=== PATIENT | female | born 1995 | race Caucasian/White ===

== ENCOUNTER 2016-07-11 02:10 | Emergency (ER) | payer SELFPAY ==
[2016-07-11 02:49] LABS: ALT 15 U/L (7-52); AST 16 U/L (13-39); Albumin 4.2 g/dL (3.2-5.2); Alkaline Phosphatase 52 U/L (34-104); Anion Gap 7 mmol/L (2-11); BUN/Creatinine Ratio 13.4 (8-20); Blood Urea Nitrogen 11 mg/dL (6-24); CO2 Carbon Dioxide 27 mmol/L (22-32); Calcium 9.4 mg/dL (8.6-10.3); Chloride 101 mmol/L (101-111); EGFR African American 113.2 (>60); Globulin 3.3 g/dL (2-4); Glucose 93 mg/dL (70-100); Potassium 3.5 mmol/L (3.5-5.0); Sodium 135 mmol/L (133-145); Total Protein 7.5 g/dL (6.4-8.9)
[2016-07-11 03:02] LABS: Hematocrit 43 % (35-47); Hemoglobin 14.6 g/dl (12.0-16.0); Mean Corpuscular HGB Conc 34 g/dl (31-36); Mean Corpuscular Hemoglobin 31 pg (27-31); Mean Corpuscular Volume 89 fL (80-97); Mean Platelet Volume 7 um3 (7.4-10.4); Red Blood Count 4.79 10^6/ul (4.0-5.4); Red Cell Distribution Width 13 % (10.5-15); White Blood Count 9.8 10^3/ul (3.5-10.8)
[2016-07-11 03:04] LABS: Add Diff/Slide Review? Slide Review Added; Comments Flag Yes
[2016-07-11 03:09] LABS: Acetaminophen < 15 mcg/mL; Alcohol 359 mg/dL (<10); Salicylate < 2.50 mg/dL (<30)
--- NOTE | 2016-07-11 06:21 | ED ---
Viet Bhat Alok, scribed for Geovanny Vinesuel on 07/11/16 at 0227 . Substance Abuse/Use - HPI Summary HPI Summary: 21 y/o female presents to the ED with ETOH intoxication after being picked up from a bar. Pt reportedly drank "a lot" and denies pain. - History Of Current Complaint Chief Complaint: EDSubstanceAbuse Stated Complaint: ETOH Time Seen by Provider: 07/11/16 02:16 Hx Obtained From: Patient ?: No Onset/Duration of Drug/ETOH Abuse: Hours Severity Initially: Moderate Severity Currently: Moderate Associated Signs And Symptoms: Other: - intoxicated - Allergies/Home Medications Allergies/Adverse Reactions: Allergies Allergy/AdvReac Type Severity Reaction Status Date / Time No Known Allergies Allergy Verified 07/11/16 02:16 PMH/Surg Hx/FS Hx/Imm Hx Infectious Disease History: No Infectious Disease History: Denies: Traveled Outside the [place] in Last 30 Days - Family History Known Family History: Negative: Hypertension - Social History Occupation: Student Review of Systems Negative: Fever Negative: Anxious, Depressed All Other Systems Reviewed And Are Negative: Yes Physical Exam Triage Information Reviewed: Yes Vital Signs On Initial Exam: Initial Vitals Temp Pulse Resp BP Pulse Ox 97.8 F 70 14 104/61 98 07/11/16 02:14 07/11/16 02:14 07/11/16 02:14 07/11/16 02:14 07/11/16 02:14 Vital Signs Reviewed: Yes Appearance: Positive: Well-Appearing - Pt appears intoxicated, No Pain Distress Skin: Positive: Warm, Skin Color Reflects Adequate Perfusion, Dry Head/Face: Positive: Normal Head/Face Inspection Eyes: Positive: EOMI, CAMILO ENT: Positive: Normal ENT inspection Neck: Positive: Supple, Nontender Respiratory/Lung Sounds: Positive: Clear to Auscultation, Breath Sounds Present Cardiovascular: Positive: RRR, Pulses are Symmetrical in both Upper and Lower Extremities Abdomen Description: Positive: Nontender, Soft Bowel Sounds: Positive: Present Musculoskeletal: Positive: Normal, Strength/ROM Intact Neurological: Positive: Normal, Sensory/Motor Intact, Alert, Oriented to Person Place, Time Diagnostics - Vital Signs Vital Signs Temp Pulse Resp BP Pulse Ox 07/11/16 02:14 97.8 F 70 14 104/61 98 - Laboratory Result Diagrams: 07/11/16 02:50 07/11/16 02:22 Lab Statement: Any lab studies that have been ordered have been reviewed, and results considered in the medical decision making process. Course/Dx - Diagnoses Provider Diagnoses: Alcohol intoxication Discharge - Discharge Plan Condition: Stable Disposition: HOME Patient Education Materials: Alcohol Intoxication (ED) Referrals: No Primary Care Phys,NOPCP [Primary Care Provider] - [facility] [Outside] Additional Instructions: Please follow up with your primary care provider The documentation as recorded by the Viet galo Alok accurately reflects the service I personally performed and the decisions made by Jasmyn barrientos Emmanuel.
== END 2016-07-11 11:12 | disposition home or self-care (01) ==
LOC: ED 02:10
DX: F10.129 Alcohol abuse with intoxication, unspecified (principal); Y90.8 Blood alcohol level of 240 mg/100 ml or more; Z32.02 Encounter for pregnancy test, result negative
CPT/HCPCS: 36415; 80053; 80320; 80329; 84702; 85025; 99282; G0480